=== PATIENT | male | born 1990 | race Caucasian/White ===

== ENCOUNTER → 2024-06-19 10:46 | Outpatient (BNVA) | payer MEDICAID, SELFPAY | DX: Z13.6 Encounter for screening for cardiovascular disorders (principal); Z76.89 Persons encountering health services in other specified circumstances; E55.9 Vitamin D deficiency, unspecified | CPT/HCPCS: 80053; 80061; 82306; 85025 ==

== ENCOUNTER → 2024-09-19 11:31 | Outpatient (BNVA) | payer MEDICAID, SELFPAY | DX: E55.9 Vitamin D deficiency, unspecified (principal) | CPT/HCPCS: 82306 ==

== ENCOUNTER 2025-05-13 03:07 | Emergency (ER) | payer MEDICAID, SELFPAY ==
[2025-05-13 03:11] VITALS: BP 152/108; PULSE 79; RESP 16; TEMP 36.7; O2SAT 99; BMI 31.4
[2025-05-13 04:00] VITALS: RESP 18; O2SAT 97
[2025-05-13] MEDS: oxyCODONE-APAP 10-325 mg Tablet 1 TAB PO (04:00)
[2025-05-13 04:06] VITALS: BP 140/93; PULSE 98; O2SAT 99
--- NOTE | 2025-05-13 04:35 | ED_ITS ---
HPI - Dental/Oral General: Chief complaint: Dental/Oral Stated complaint: Tooth Ache Time Seen by Provider: 05/13/25 03:16 History of Present Illness: Pt presents with severe pain on one side of the face following a recent dental visit for a broken tooth. The tooth had a filling fall out a couple of years ago, and the patient recently sought evaluation due to the broken tooth, though it was not previously painful. After a filling was placed at the dentist, the pain began about 20 minutes after returning home and has since become severe, radiating across the entire side of the face. Pt denies prior pain before the dental visit. No mention of fever or systemic symptoms. Pt expresses significant discomfort and requests pain relief and antibiotics until the planned extraction. Related Data Previous Rx's ?Medication ?Instructions ?Recorded epinephrine 0.3 mg/0.3 mL 0.3 mg (0.3 mL) IM Q4H PRN 0 06/19/24 injection, auto-injector (EpiPen) anaphylaxis #2 ea hydroxyzine HCl 50 mg tablet 50 mg PO TID anxiety #90 tabs 06/19/24 trazodone 50 mg tablet 50 mg PO DAILY #30 tabs 07/05 pantoprazole 20 mg tablet,delayed 20 mg PO BID #60 tab s 09/15/24 release polyethylene glycol 3350 17 4 g PO DAILY #119 grams gram/dose oral powder (Miralax) sumatriptan succinate 50 mg tablet See Rx Instructions PO .COMPLEX 09/19/24 #14 tabs bupropion HCl 300 mg 24 hr tablet, See Rx Instructions .Route 04/20/25 extended release .COMPLEX #30 tabs amoxicillin 875 mg-potassium 1 tab PO BID 10 days #20 tabs 05/13/25 clavulanate 125 mg tablet oxycodone-acetaminophen 5 mg-325 1 tab PO Q6H PRN pain #20 tabs 05/13/25 mg tablet (Percocet) Allergies Allergy/AdvReac Type Severity Reaction Status Date / Time venlafaxine (From Effexor) Allergy ALGY-Hives Verified 09/19/24 10:55 bees Allergy Intermediate ADR-Josef Uncoded 09/19/24 10:56 [facility] PFSH: Medical History (Updated 05/13/25 @ 03:51 by Dami Del Castillo MD) Constipation Vitamin D deficiency Screening for cardiovascular condition Encounter to establish care Chronic headaches Insomnia Allergy to bee sting GERD (gastroesophageal reflux disease) Manic depression Anxiety Surgical History (Updated 09/19/24 @ 11:27 by Fabiola Grant NP) H/O colonoscopy 2008. GERD seen on scope History of ankle surgery 4 screw and 2 plates. 2020 Family History Mother Cancer Liver Father Diabetes Social History Smoking and tobacco/nicotine status: never used tobacco/nicotine Alcohol intake: never Substance/Drug Use: current Adopted: No service: No Current occupational exposures/hazards: No Physical Exam Const: COMMON NORMALS: no acute distress, patient oriented x3 and alert HENMT: OTHER: Teeth mostly appear normal. There is some soft tissue edema adjacent to the right lower molars concerning for soft tissue infection adjacent to the tooth. No palpable abscess. No trismus. Able to phonate clearly. No trouble swallowing or breathing. Eye: COMMON NORMALS: Equal, round and reactive pupils present, EOMs intact bilaterally and no scleral icterus PUPIL: Yes Equal, round and reactive pupils present Resp: COMMON NORMALS: normal respiratory effort and No retractions Cardio: COMMON NORMALS: regular rate, regular rhythm and No murmurs present (Cardio) RATE: regular rate RHYTHM: regular rhythm GI: COMMON NORMALS: Normal to inspection, nondistended, normoactive bowel sounds present, Soft to palpation and non-tender PALPATION: Yes Soft to palpation Neuro: COMMON NORMALS: patient oriented x3 SENSORIUM/ORIENTATION: Yes alert Skin: COMMON NORMALS: no rashes or lesions noted GENERAL SKIN EXAM: no rashes or lesions noted Course Vital Signs: Vital signs: Vital Signs Temperature 98.0 F 05/13/25 03:11 Pulse Rate 98 05/13/25 04:06 Respiratory Rate 18 05/13/25 04:00 Blood Pressure 140/93 05/13/25 04:06 Pulse Oximetry 99 05/13/25 04:06 Oxygen Delivery Me thod Room Air 05/13/25 03:11 [facility] - Dental/Oral Medical Decision Making In summary, patient is a generally well-appearing 34-year-old male seen for inc reasing tooth pain after seeing his dentist about an infected tooth which needs to be pulled. He does not currently have any oral antibiotics or pain medication. He will be given Augmentin and Percocet with plans to follow-up closely with his dentist for definitive management. He shows good understanding and agrees to the plan No radiology studies performed this visit Discharge Plan Discharge Patient Disposition: Home Clinical Impression: Infected tooth Condition: Stable Prescriptions: New amoxicillin-pot clavulanate 875-125 mg tablet 1 tab PO BID 10 Days Qty: 20 0RF oxycodone-acetaminophen [Percocet] 5-325 mg tablet 1 tab PO Q6H PRN (Reason: pain) Qty: 20 0RF No Action hydroxyzine HCl 50 mg tablet 50 mg PO TID Qty: 90 2RF epinephrine [EpiPen] 0.3 mg/0.3 mL auto-injector 0.3 mg IM Q4H PRN (Reason: anaphylaxis) Qty: 2 2RF trazodone 50 mg tablet 50 mg PO DAILY Qty: 30 2RF sumatriptan succinate 50 mg tablet See Rx Instructions PO .COMPLEX Qty: 14 0RF Rx Instructions: take 1 tab at onset of headache; if no relief may repeat 1 tab after at least 2 hrs; max = 4 tabs/24 hr PO polyethylene glycol 3350 [Miralax] 17 gram/dose powder 4 g PO DAILY Qty: 119 1RF pantoprazole 20 mg tablet,delayed release (DR/EC) 20 mg PO BID Qty: 60 2RF bupropion HCl 300 mg tablet extended release 24 hr See Rx Instructions .ROUTE .COMPLEX Qty: 30 2RF Dose Instruction: TAKE 1 TABLET BY MOUTH IN THE MORNING Rx Instructions: TAKE 1 TABLET BY MOUTH IN THE MORNING Discharge Orders: Discharge ED (Routine); Ordered 05/13/25 Ordered By: Dami Del Castillo Discharge Diet: Advance as tolerated Discharge Activity: Increase activity as tolerated Patient Instructions: Dental Abscess (ED), Opioid Safety, Pain Management, Patient Portal & Brandt Instructions Activity Restrictions/Additional Instructions: please return to your dentist for definitive treatment as soon as feasible. Print Language: Armenian Coding Level of Care Code ED Franchise Consultant for [facility]
== END 2025-05-13 04:00 | disposition home or self-care (01) ==
PROVIDERS: Emergency Provider Student in an Organized Health Care Education/Training Program
DX: K04.7 Periapical abscess without sinus (principal)
CPT/HCPCS: 99283; J9999